=== PATIENT | female | born 1960 | race Caucasian/White ===

== ENCOUNTER 2017-02-11 15:23 | Emergency (ER) | payer OTHER ==
[~2017-02-11] VITALS: Ht 175.3 cm; Wt 65.8 kg
[~2017-02-11 15:23] MED LIST: AMBIEN 5 MG TABL5 M1 PO
[2017-02-11] MEDS ORDERED: IBUPROFEN 600600 M1 PO (16:38)
[2017-02-11] MEDS ORDERED: HYDROCODONE-AP1 EAC6 PO (16:38)
== END 2017-02-11 17:00 | disposition home or self-care (01) ==
LOC: ER 15:23
DX: S92.515A Nondisplaced fracture of proximal phalanx of left lesser toe(s), initial encounter for closed fracture (principal); Z90.710 Acquired absence of both cervix and uterus; W22.8XXA Striking against or struck by other objects, initial encounter; Y93.89 Activity, other specified; Y92.89 Other specified places as the place of occurrence of the external cause; Y99.9 Unspecified external cause status

== ENCOUNTER → 2019-10-27 | Outpatient (CLI) | payer OTHER ==
[~2019-10-27] MED LIST changes: +HYDROCODONE-AP1 EAC6 PO; +IBUPROFEN 600600 M1 PO; +MILK OF MA2400 MG/10 PO; +NORCO 5-325 TA1 EACH PO
== END ==
LOC: BC 12:54
DX: Z12.31 Encounter for screening mammogram for malignant neoplasm of breast (principal)

== ENCOUNTER → 2020-11-03 | Outpatient (CLI) | payer BC, OTHER | LOC: BC 11-02 16:14 | PROVIDERS: ATTEND Internal Medicine | DX: Z12.31 Encounter for screening mammogram for malignant neoplasm of breast (principal) ==

== ENCOUNTER → 2021-11-03 | Outpatient (CLI) | payer BC, OTHER | LOC: BC 10:31 | PROVIDERS: ATTEND Internal Medicine | DX: Z12.31 Encounter for screening mammogram for malignant neoplasm of breast (principal) ==